=== PATIENT | male | born 1990 | race Caucasian/White ===

== ENCOUNTER 2020-03-21 15:44 | Emergency (ER) | payer SELFPAY ==
[2020-03-21 16:09] VITALS: BP 141/90
--- NOTE | 2020-03-21 16:13 | Emergency Department Report ---
ED Lower Extremity HPI - General Chief Complaint: Extremity Injury, Lower Stated Complaint: LT FOOT INJURY Time Seen by Provider: 03/21/20 15:50 Source: patient Mode of arrival: Ambulatory Limitations: No Limitations - History of Present Illness Initial Comments: This is a 29-year-old male nontoxic, well nourished in appearance, no acute signs of distress presents to the ED with c/o of left foot pain s/p fall yesterday. Patient denies any other trauma or injuries. Denies any LOC, head trauma, neck pain or back pains. Stated has some decreased ROM but denies joint swelling, redness, or abnormal gait. Denies any fever, chills, nausea, vomiting, headache, stiff neck, chest pain or shortness of breath. Patient denies any numbness or tingling. Denies any allergies. MD Complaint: foot injury -: days(s) Injury: Foot: Left Severity: mild Severity scale (0 -10): 8 Improves With: immobilization Worsens With: weight bearing, movement, palpation Associated Symptoms: able to partially bear weight. denies: snap/pop sensation, swelling, numbness, tingling, unable to bear weight - Related Data Previous Rx's Medication Instructions Recorded Last Taken Type Naproxen 500 mg PO Q12H PRN #12 tablet 03/21/20 Unknown Rx Allergies Allergy/AdvReac Type Severity Reaction Status Date / Time No Known Allergies Allergy Unverified 03/21/20 15:49 ED Review of Systems ROS: Stated complaint: LT FOOT INJURY Other details as noted in HPI Comment: All other systems reviewed and negative Constitutional: denies: chills, fever Eyes: denies: eye pain, eye discharge, vision change ENT: denies: ear pain, throat pain Respiratory: denies: cough, shortness of breath, wheezing Cardiovascular: denies: chest pain, palpitations Endocrine: no symptoms reported Gastrointestinal: denies: abdominal pain, nausea, diarrhea Genitourinary: denies: urgency, dysuria Musculoskeletal: denies: back pain, joint swelling, arthralgia Skin: denies: rash, lesions Neurological: denies: headache, weakness, paresthesias Psychiatric: denies: anxiety, depression Hematological/Lymphatic: denies: easy bleeding, easy bruising ED Past Medical Hx - Past Medical History Previous Medical History?: No - Surgical History Past Surgical History?: Yes Additional Surgical History: shoulder - Social History Smoking Status: Current Every Day Smoker Substance Use Type: None - Medications Home Medications: Home Medications Medication Instructions Recorded Confirmed Last Taken Type Naproxen 500 mg PO Q12H PRN #12 tablet 03/21/20 Unknown Rx ED Physical Exam - General Limitations: No Limitations General appearance: alert, in no apparent distress - Head Head exam: Present: atraumatic, normocephalic - Eye Eye exam: Present: normal appearance - Neck Neck exam: Present: normal inspection, full ROM. Absent: tenderness, meningismus, lymphadenopathy - Respiratory Respiratory exam: Absent: respiratory distress - Cardiovascular Cardiovascular Exam: Present: regular rate - Extremities Exam Extremities exam: Present: normal inspection, full ROM, tenderness, normal capillary refill. Absent: joint swelling - Expanded Lower Extremity Exam Left Hip exam: Present: normal inspection, full ROM. Absent: tenderness, swelling Upper Leg exam: Present: normal inspection, full ROM. Absent: tenderness, swelling Knee exam: Present: normal inspection, full ROM. Absent: tenderness, swelling Lower Leg exam: Present: normal inspection, full ROM. Absent: tenderness, swelling Ankle exam: Present: normal inspection, full ROM. Absent: tenderness, swelling, abrasion, laceration, ecchymosis, deformity, crepidus, dislocation, erythema, anterior draw sign Foot/Toe exam: Present: full ROM, tenderness. Absent: swelling, abrasion, laceration, ecchymosis, deformity, crepidus, dislocation, erythema, amputation, puncture wound, foreign body, calcaneal tenderness, tenderness at base of 5th metatarsal, nail avulsion, subungual hematoma Neuro vascular tendon exam: Present: no vascular compromise Gait: Positive: observed and normal 1 - pain here - Back Exam Back exam: Present: normal inspection, full ROM. Absent: tenderness, CVA tenderness (R), CVA tenderness (L), muscle spasm, paraspinal tenderness, vertebral tenderness, rash noted - Neurological Exam Neurological exam: Present: alert, oriented X3, normal gait - Psychiatric Psychiatric exam: Present: normal affect, normal mood - Skin Skin exam: Present: warm, dry, intact, normal color. Absent: rash ED Course Vital Signs 03/21/20 15:49 Temperature 98.8 F Pulse Rate 86 Respiratory 18 Rate Blood Pressure 141/90 O2 Sat by Pulse 99 Oximetry - Reevaluation(s) Reevaluation #1: 03/21/20 16:11 Patient is speaking in full sentences with no signs of distress noted. ED Lower Extremity MDM - Radiology Data Referring Physician: ZOHRA RICKS Patient Name: THEODORE ENGLISH Date of : 1990 Sex: Male Report Date: 2020-03-21 Report Status: Finalized [address] [address] XRay Report Signed Patient: THEOODRE ENGLISH MR#: [id number] : 1990 Acct:[id number] Age/Sex: 29 / M ADM Date: 03/21/20 Loc: ED Attending Dr: Ordering Physician: ZOHRA IRCKS NP Date of Service: 03/21/20 Procedure(s): XR ankle 3+V LT Accession Number(s): [id number] cc: ZOHRA RICKS NP Fluoro Time In Minutes: RIGHT ANKLE 3 VIEWS INDICATION / CLINICAL INFORMATION: MAIN. COMPAR SHAKIR: None available. FINDINGS: Mildly displaced fracture of the base of the fifth metatarsal. No other significant skeletal abnormality Signer Name: Zohra New MD FACR Signed: 03/21/2020 4:38 PM Workstation Name: [id number] Transcribed By: MS Dictated By: Zohra New MD Electronically Authenticated By: Zohra New MD Signed Date/Time: 03/21/201637 DD/ 163 TD/TT: Referring Physician: ZOHRA RICKS Patient Name: THEODORE ENGLISH Date of : 1990 Sex: Male Report Date: 2020-03-21 Report Status: Finalized [address] [address] XRay Report Signed Patient: THEODORE ENGLISH MR#: [id number] : 1990 Acct:[id number] Age/Sex: 29 / M ADM Date: 03/21/20 Loc: ED Attending Dr: Ordering Physician: ZOHRA RICKS NP Date of Service: 03/21/20 Procedure(s): XR foot 3+V LT Accession Number(s): [id number] cc: ZOHRA RICKS NP Fluoro Time In Minutes: LEFT FOOT 3 VIEWS INDICATION / CLINICAL INFORMATION: MAIN. COMPARISON: None available. FINDINGS: Lucency is seen in the base of the fifth metatarsal which could represent a minimally displaced fracture. No other significant skel etal abnormality Signer Name: Zohra New MD FACR Signed: 03/21/2020 4:38 PM Workstation Name: [id number] Transcribed By: MS Dictated By: Zohra New MD Electronically Authenticated By: Zohra New MD Signed Date/Time: 03/21/201637 DD/ 36 TD/TT: - Medical Decision Making Patient is stable and was examined by me. Patient notified of the xray results with no questions noted by the patient. Patient received short leg OCL splint and crutches and was educated by RN how to use crutches. Post splint: neurovascular intact, cap refill <2 seconds, normal sensation. EDucated on RICE therapy. Patient was instructed to Follow-up with a orthopedic doctor in 3-5 days or if symptoms worsen and continue return to emergency room as soon as possible. At time of discharge, the patient does not seem toxic or ill in appearance. No acute signs of distress noted. Patient agrees to discharge treatment plan of care. No further questions noted by the patient. Critical care attestation.: If time is entered above; I have spent that time in minutes in the direct care of this critically ill patient, excluding procedure time. ED Disposition Clinical Impression: Foot fracture, left Qualifiers: Encounter type: initial encounter Fracture type: closed Qualified Code(s): S92.902A - Unspecified fracture of left foot, initial encounter for closed fracture Disposition: TO HOME OR SELFCARE Is pt being admited?: No Does the pt Need Aspirin: No Condition: Stable Instructions: Cast or Splint Care, Adult, Avulsion Fracture of the Foot, Crutch Use, Adult Additional Instructions: Follow-up with a orthopedic doctor in 3-5 days or if symptoms worsen and continue return to emergency room as soon as possible. . No physical activity until cleared by orthopedic doctor. Prescriptions: Naproxen 500 mg PO Q12H PRN #12 tablet PRN Reason: Pain , Severe (7-10) Referrals: PRIMARY CARE, [Referring] - 3-5 Days THEODORE MIX MD [Staff Physician] - 3-5 Days Forms: Work/School Release Form(ED)
--- NOTE | 2020-03-21 16:42 | XRay Report ---
LEFT FOOT 3 VIEWS INDICATION / CLINICAL INFORMATION: MAIN. COMPARISON: None available. FINDINGS: Lucency is seen in the base of the fifth metatarsal which could represent a minimally displaced fract ure. No other significant skeletal abnormality Signer Name: Sharif New MD FACR Signed: 03/21/2020 4:38 PM Workstation Name: [id number]
--- NOTE | 2020-03-21 16:42 | XRay Report ---
RIGHT ANKLE 3 VIEWS INDICATION / CLINICAL INFORMATION: MAIN. COMPARISON: None available. FINDINGS: Mildly displaced fracture of the base of the fifth metatarsal. No other significant skeletal abnormal ity Signer Name: Sharif New MD FACLe Signed: 03/21/2020 4:38 PM Workstation [id number]
[2020-03-21] MEDS ORDERED: IBUPROFEN 800 MG TAB PO ONE (16:57)
== END 2020-03-21 21:40 | disposition home or self-care (01) ==
LOC: ED 15:44
DX: S92.902A Unspecified fracture of left foot, initial encounter for closed fracture (principal); F17.200 Nicotine dependence, unspecified, uncomplicated; Z79.899 Other long term (current) drug therapy; W18.30XA Fall on same level, unspecified, initial encounter; Y93.89 Activity, other specified; Y92.89 Other specified places as the place of occurrence of the external cause; Y99.8 Other external cause status
CPT/HCPCS: 99283